=== PATIENT | female | born 1975 | race Caucasian/White ===

== ENCOUNTER 2019-06-14 15:26 | Outpatient (CLI) | payer BC, SELFPAY ==
--- NOTE | ~2019-06-14 | MM_ITS ---
EXAMINATION: MM screening jonatan BI w ruddy HISTORY: Screening mammogram TECHNIQUE: Craniocaudal and mediolateral oblique 3-D tomosynthesis images were obtained and synthetic 2-D images were generated. CAD analysis was submitted and interpreted. COMPARISON: None, baseline BREAST PARENCHYMAL COMPOSITION: The breasts are almost entirely fatty. FINDINGS: RIGHT BREAST: There is a possible low-density mass in the middle third of the outer breast approximat [place] 5 cm from the nipple. LEFT BREAST: There is no evidence of suspicious mass, calcification, or architectural distortion to s uggest malignancy. IMPRESSION: 1. Possible right breast mass. 2. Additional mammographic views and possible breast ultrasound are recommended to evaluate for malig kim and establish a baseline given that this is the first mammographic examination. BI-RADS Category 0: Incomplete: Needs additional imaging evaluation. Reviewed, dictated and finalized at location A. IRONER IMPRESSION: 1. Possible right breast mass. 2. Additional mammographic views and possible breast ultrasound are recommended to evaluate for malignancy and establish a baseline given that this is the fir st mammographic examination. BI-RADS Category 0: Incomplete: Needs additional imaging evaluation.
== END 2019-06-14 15:27 | disposition home or self-care (01) ==
LOC: ANHIMG 15:36
DX: Z12.31 Encounter for screening mammogram for malignant neoplasm of breast (principal); R92.8 Other abnormal and inconclusive findings on diagnostic imaging of breast
CPT/HCPCS: 77063; 77067

== ENCOUNTER 2020-11-13 15:00 | Outpatient (RCR) | payer BC, SELFPAY ==
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
--- NOTE | 2020-11-06 15:56 | PCPTNOTE ---
Patient reports she will not be able to make it to therapy this date because something has come up.
--- NOTE | 2020-11-11 15:54 | PCPTNOTE ---
pt did not show for today's appt; called and left voice message with reminder for next appt;
--- NOTE | 2020-11-13 15:39 | PCPTNOTE ---
pt did not show for today's reeval appt;
--- NOTE | 2020-11-28 14:47 | PCPTNOTE ---
PHYSICAL THERAPY DISCHARGE 11-28-20 Attending Provider: Nimisha Montemayor MD Patient:Linda Griffiths Date of :1975 Linda has received 2 PT sessions, on October 21 and November 03, for the diagnosis of vestibular rehab. She had 1 cancel and 2 no show appointments. Therefore, she will be discharged at this time. The goals were not addressed. Thank you for referring to [facility]. Please review, sign, date and return this discharge summary MALLIKA. I have been updated about the patient's current status and I agree with discharge from the above service at this time. Referring Physician Date
== END 2020-12-03 15:27 | disposition home or self-care (01) ==
LOC: ANHPT 15:00
PROVIDERS: PCP Family Medicine; Visit Provider Family Medicine
DX: M54.15 Radiculopathy, thoracolumbar region (principal)
CPT/HCPCS: 97110; 97140; 97161

== ENCOUNTER 2021-09-04 14:50 | Outpatient (CLI) | payer BC, SELFPAY ==
--- NOTE | ~2021-09-04 | CT_ITS ---
EXAMINATION: CT sinus wo con DATE: 09/04/2021 15:29 INDICATION: Disorder of nose and paranasal sinuses for years TECHNIQUE: Computed tomography (CT) of the paranasal sinuses was performed without contrast. Iterativ e reconstruction technique was employed. Exam dose: 303.98 mGy-cm total exam DLP. COMPARISON: None FINDINGS: There is rightward deviation of the nasal septum. The nasal turbinates are prominent but re latively symmetric in size. The ostiomeatal units are patent bilaterally. No mucoperiosteal thickening, soft tissue mass density, cyst or fluid level of the paranasal sinuses. The mastoid air cells are normally developed and aerated. Incidentally noted are bilateral fractures of the upper medial and inferior stewart of the right orbit IMPRESSION: Likely old blowout fractures of the upper medial and inferior stewart of the right orbit No displaced nasal fractures with leftward deviation of the nose Patent paranasal sinuses, ostiomeatal units and mastoid air cells Reviewed, dictated and finalized at Location A. Reviewed, dictated and finalized at location B. IMPRESSION: Likely old blowout fractures of the upper medial and inferior wall s of the right orbit No displaced nasal fractures with leftward deviation of the nose Patent paranasal sinuses, ostiomeatal units and mastoid air cells
== END 2021-09-04 14:51 | disposition home or self-care (01) ==
PROVIDERS: PCP Family Medicine; Visit Provider Otolaryngology
DX: J34.89 Other specified disorders of nose and nasal sinuses (principal); R09.81 Nasal congestion; J34.3 Hypertrophy of nasal turbinates; J34.2 Deviated nasal septum; J32.9 Chronic sinusitis, unspecified; R09.82 Postnasal drip
CPT/HCPCS: 70486

== ENCOUNTER 2022-01-22 13:38 | Emergency (ER) | payer BC, SELFPAY ==
[2022-01-22 13:41] VITALS: BP 142/80; PULSE 95; RESP 20; TEMP 36.3; O2SAT 97
--- NOTE | 2022-01-22 14:49 | ED.EAR ---
HPI - Ear Problem General Chief complaint: Ear Stated complaint: sinus infection Time Seen by Provider: 01/22/22 14:24 Source: patient Mode of arrival: ambulatory Limitations: no limitations History of Present Illness HPI Narrative: This is a 46-year-old female that presents to the emergency department for right-sided otalgia noted over the last couple of days. Associated with congestion, sinus pain, and a cough. Denies fevers. Related Data Home Medications Medication Instructions Recorded Confirmed loratadine 10 mg tablet (Claritin) 10 mg PO DAILY 08/05/21 08/26/21 montelukast 10 mg tablet 10 mg PO DAILY 08/05/21 08/26/21 (Singulair) Allergies Allergy/AdvReac Type Severity Reaction Status Date / Time ibuprofen Allergy Severe Anaphylactic Verified 08/26/21 10:08 Shock Penicillins Allergy Severe Anaphylactic Verified 08/26/21 10:08 Shock acetaminophen [From [place]] Allergy Unknown tongue Verified 08/26/21 10:08 swells hydrocodone [From [place]] Allergy Unknown tongue Verified 08/26/21 10:08 swells Review of Systems Review of Systems: CONSTITUTIONAL: Denies fever ENT: Reports congestion, and otalgia. RESPIRATORY: Reports cough. Denies dyspnea. All systems reviewed & are unremarkable except as noted in HPI and below PMFSH Past Medical History Medical History (Updated 01/22/22 @ 14:53 by Edyta Godoy PA-C) Influenza Seasonal allergies Surgical History Surgical History H/O myringotomy H/O tubal ligation Social History Social History Smoking status: Current every day smoker Tobacco type: cigarettes Alcohol intake: current Substance use: unknown Exam Narrative: GENERAL: Well-appearing, well-nourished, and in no acute distress. HEAD: Normocephalic, atraumatic. EYES: EOMI. ENT: Nares clear, no rhinorrhea or epistaxis. Mucous membranes moist. Oropharynx without tonsillar hypertrophy exudate or other lesions. Bilateral TMs pearly barth non-bulging NECK: Supple. No adenopathy or masses. CHEST: No respiratory distress. Mild, scattered wheezes. No rales or rhonchi HEART: Regular rate and rhythm. No murmur heard. Normal peripheral pulses. EXTREMITIES: Normal range of motion. No edema. SKIN: Warm, dry, no rash. NEURO: No focal deficits. Alert and oriented x3. PSYCH: Normal mood and affect Course Vital Signs Vital signs: Vital Signs Temperature 97.4 F L 01/22/22 13:41 Pulse Rate 95 01/22/22 13:41 Respiratory Rate 20 01/22/22 13:41 Blood Pressure 142/80 H 01/22/22 13:41 Pulse Oximetry 97 01/22/22 13:41 Temperature 97.4 F L 01/22/22 13:41 Pulse Rate 95 01/22/22 13:41 Respiratory Rate 20 01/22/22 13:41 Blood Pressure 142/80 H 01/22/22 13:41 Pulse Oximetry 97 01/22/22 13:41 Medical Decision Making MDM Narrative Medical decision making narrative: Patient presents to the emergency department for right-sided otalgia noted over the last couple of days. Associated with some sinus pain and congestion. She is afebrile and nontoxic-appearing. Her vitals are stable. Oxygen saturation is normal on room air. She has some mild scattered wheezes, otherwise her lungs are clear. She does report she has an albuterol inhaler at home. There is no evidence for otitis media at this time. We will send patient an antibiotic and she is instructed to started if she develops fevers or worsening pain. She was also encouraged to follow-up with her ENT doctor. She was given warnings to return to the ER Vital Signs Vital Signs: Vital Signs Temperature 97.4 F L 01/22/22 13:41 Pulse Rate 95 01/22/22 13:41 Respiratory Rate 01/22/22 13:41 Blood Pressure 142/80 H 01/22/22 13:41 Pulse Oximetry 97 01/22/22 13:41 Temperature 97.4 F L 01/22/22 13:41 Pulse Rate 95 01/22/22 13:41 Respiratory Rate 01/22/22 13:41 Bloo
== END 2022-01-22 15:00 | disposition home or self-care (01) ==
PROVIDERS: Emergency Provider Emergency Medicine; PCP Physician Assistant
DX: J01.01 Acute recurrent maxillary sinusitis (principal); F17.210 Nicotine dependence, cigarettes, uncomplicated
CPT/HCPCS: 99283

== ENCOUNTER 2023-06-11 13:37 | Outpatient (CLI) | payer MEDICAID, SELFPAY ==
--- NOTE | ~2023-06-11 | XR_ITS ---
EXAM: XR hip RT min 2V DATE: 06/11/2023 14:12 HISTORY: CERVICALGIA,LOW BACKK PAIN,PAIN IN RIGHT HIP . COMPARISON: None available. FINDINGS: Normal mineralization. No fracture or dislocation. No lytic or blastic lesion. Mild joint space narrowing, subchondral cysts, and subchondral sclerosis in the right hip joint. Mild degenerati ve change also noted in the right SI joint and pubic symphysis. IMPRESSION: Mild right hip osteoarthritis. Reviewed, dictated and finalized at location K. BOAT OPERATOR
--- NOTE | ~2023-06-11 | XR_ITS ---
EXAM: XR_CERV2-3V_CR DATE: 06/11/2023 14:12 HISTORY: NECK PAIN . COMPARISON: None available. FINDINGS: Craniocervical association and atlantoaxial joint are aligned. Mild degenerative change at the atlantodental interval. Reversed lordosis centered at C5-6. 3 mm retrolisthesis at C5-6. Trace a nterolisthesis at C4-5. Disc space narrowing and marginal osteophytosis, mild at C6-7 and moderate at C5-6. Mild multilevel facet sclerosis and hypertrophy. Normal prevertebral soft tissues. Clear lung apices. IMPRESSION: Multilevel degenerative listheses. Multilevel degenerative disc disease, moderate at C5-6 . Multilevel mild facet arthropathy. Reviewed, dictated and finalized at location K. ER COACH IMPRESSION: Multilevel degenerative listheses. Multilevel degenerative disc dis ease, moderate at C5-6. Multilevel mild facet arthropathy.
--- NOTE | ~2023-06-11 | XR_ITS ---
EXAM: XR lumbar spine 2-3V DATE: 06/11/2023 14:12 HISTORY: CERVICALGIA,LOW BACKK PAIN,PAIN IN RIGHT HIP . COMPARISON: None available. FINDINGS: 5 nonrib-bearing lumbar-type vertebral bodies. Pedicles intact. Lumbar straightening. Athe rosclerotic aortic ossification without aneurysm. Cholecystectomy clips. Mild disc space narrowing at L4-5. Severe disc space narrowing at L5-S1. Mild lower lumbar facet hypertrophy and sclerosis. No fr acture or dislocation. IMPRESSION: Severe degenerative disc disease at L5-S1. Reviewed, dictated and finalized at location K. ER MACHINE
== END 2023-06-11 13:38 | disposition home or self-care (01) ==
PROVIDERS: PCP Physician Assistant; Visit Provider Physician Assistant
DX: M16.11 Unilateral primary osteoarthritis, right hip (principal); M51.37 Other intervertebral disc degeneration, lumbosacral region; M50.322 Other cervical disc degeneration at C5-C6 level
CPT/HCPCS: 72040; 72100; 73502

== ENCOUNTER 2023-07-07 14:37 | Outpatient (CLI) | payer MEDICAID, SELFPAY ==
--- NOTE | ~2023-07-07 | MM_ITS ---
EXAMINATION: MM screening jonatan BI w ruddy HISTORY: Screening mammogram TECHNIQUE: Craniocaudal and mediolateral oblique 3-D tomosynthesis images were obtained and synthetic 2-D images were generated. CAD analysis was submitted and interpreted. COMPARISON: June 14, 2019 bilateral screening mammogram BREAST PARENCHYMAL COMPOSITION: The breasts are almost entirely fatty. FINDINGS: 2 approximately 5 mm masses are noted in the anterior central right breast. Diagnostic righ t mammogram and right breast ultrasound examination are recommended. No suspicious mass, architectural distortion, malignant calcification, skin thickening or retraction or significant new or developing density of either breast is noted otherwise. IMPRESSION: 1. 2 anterior central small right breast masses 2. Diagnostic right mammogram and right breast ultrasound examination are recommended. BI-RADS Category 0: Incomplete: Needs additional imaging evaluation. Reviewed, dictated and finalized at location A. IMPRESSION: 1. 2 anterior central small right breast masses 2. Diagnostic right mammogram and right breast ultrasound examination are recom mended. BI-RADS Category 0: Incomplete: Needs additional imaging evaluation.
== END 2023-07-07 14:38 | disposition home or self-care (01) ==
PROVIDERS: PCP Physician Assistant; Visit Provider Physician Assistant
DX: Z12.31 Encounter for screening mammogram for malignant neoplasm of breast (principal); R92.8 Other abnormal and inconclusive findings on diagnostic imaging of breast
CPT/HCPCS: 73030; 77063; 77067

== ENCOUNTER 2023-07-07 15:34 | Outpatient (CLI) | payer MEDICAID, SELFPAY ==
--- NOTE | ~2023-07-07 | XR_ITS ---
XR shoulder LT min 2V 07/07/2023 15:56 INDICATION: Left shoulder pain PROCEDURE: 2 views left shoulder COMPARISON: No prior studies for comparison. FINDINGS: Fracture, dislocation or subluxation is not identified. The soft tissues appear within norm al limits. No foreign bodies are identified. There is calcified granuloma left upper thorax. IMPRESSION: 1: NO ACUTE BONE OR JOINT ABNORMALITY IDENTIFIED. Reviewed, dictated and finalized at location A.
== END 2023-07-07 15:35 | disposition home or self-care (01) ==
PROVIDERS: PCP Physician Assistant; Visit Provider Physician Assistant
DX: M25.512 Pain in left shoulder (principal)
CPT/HCPCS: 73030

== ENCOUNTER 2023-07-10 21:56 | Emergency (ER) | payer MEDICAID, SELFPAY ==
[2023-07-10 21:57] VITALS: BP 143/89; PULSE 99; RESP 20; TEMP 36.7; O2SAT 100
--- NOTE | 2023-07-11 00:37 | ED.SKABFB ---
HPI - Skin/Abscess/Foreign Bdy General Chief complaint: Skin/Abscess/Foreign Body Stated complaint: itchy chest, bug bite? Time Seen by Provider: 07/10/23 23:07 Source: patient Mode of arrival: ambulatory Limitations: no limitations History of Present Illness HPI narrative: Patient is a 48-year-old female who presents the ED with report of her rash. Patient reports she has had intermittent episodes of rash in December of last year. First noticed 1 small blister-like lesion on her right upper arm in December. Had several blister-like lesions on her arm in April of this year which have since crusted and scabbed over. She states the rash episodes and blisters have been extremely itchy. She then noticed redness and itching to her chest yesterday with areas of firmness/hive-like lesions. She states the itchiness has continued to worsen since then, but she has not developed blisters yet on her chest. She has not seen her doctor for this as she has been having insurance issues. She has tried using topical Benadryl and a topical steroid cream without much improvement. Denies difficulty breathing or swallowing, swelling of lips/tongue/throat, nausea, vomiting, fevers. Denies any new medications, soaps, laundry detergent, lotion, outdoor exposures, family member with similar symptoms. Related Data Home Medications Medication Instructions Recorded Confirmed loratadine 10 mg tablet (Claritin) 10 mg PO DAILY 08/05/21 08/26/21 montelukast 10 mg tablet 10 mg PO DAILY 08/05/21 08/26/21 (Singulair) Allergies Allergy/AdvReac Type Severity Reaction Status Date / Time ibuprofen Allergy Severe Anaphylactic Verified 07/10/23 22:51 Shock Penicillins Allergy Severe Anaphylactic Verified 07/10/23 22:51 Shock acetaminophen [From [place]] Allergy Unknown tongue Verified 07/10/23 22:51 swells hydrocodone [From [place]] Allergy Unknown tongue Verified 07/10/23 22:51 swells Review of Systems Review of Systems: CONSTITUTIONAL: Denies fever, chills, or sweats. ENT: Denies swelling, rhinorrhea, congestion, sore throat. CARDIOVASCULAR: Denies chest pain. RESPIRATORY: Denies cough or dyspnea. GASTROINTESTINAL: Denies nausea, vomiting. SKIN: See HPI NEUROLOGIC: Denies headache, dizziness, numbness, or weakness. All systems reviewed & are unremarkable except as noted in HPI and below PMFSH Past Medical History Medical History Influenza Seasonal allergies Surgical History Surgical History H/O myringotomy H/O tubal ligation Social History Social History Smoking status: Current every day smoker Tobacco type: cigarettes Alcohol intake: current Substance use: unknown Exam Narrative: GENERAL: Well appearing, morbidly obese with BMI of 40.2, non-toxic, in no acute distress. HEAD: Normocephalic, atraumatic. ENT: No stridor or distress. No evidence of angioedema. MMs moist. No erythema or swelling of face. RESPIRATORY: Airway patent, respirations nonlabored. CARDIOVASCULAR: Regular rate and rhythm MUSCULOSKELETAL: Moves all extremities. No gross deformities. SKIN: Warm, dry, normal color. Diffuse area erythema to anterior chest wall, a few small areas of induration/urticaria on chest wall within area of erythema. No vesicular formation on chest wall. No rash or vesicular formation on upper extremities. NEURO: A&O X3. Speech clear. PSYCHIATRIC: Appropriate mood and affect. Normal interaction. Course Vital Signs Vital signs: Vital Signs Temperature 98.1 F 07/10/23 21:57 Pulse Rate 99 07/10/23 21:57 Respiratory Rate 20 07/10/23 21:57 Blood Pressure 143/89 H 07/10/23 21:57 Pulse Oximetry 100 07/10/23 21:57 Oxygen Delivery Room Air 07/10/23 21:57 Temperature 98.6 F 07/11/23 02:25 Pulse Rate
[2023-07-11] MEDS: FAMOTIDINE 20 MG TABLET PO (00:43)
[2023-07-11] MEDS: methylPREDNISolone SOD SUCC 125 MG VIAL IM (00:43)
[2023-07-11] MEDS: diphenhydrAMINE HCl CAP 25 MG CAPSULE PO (00:43)
[2023-07-11 02:25] VITALS: BP 138/86; PULSE 74; RESP 16; TEMP 37; O2SAT 99
== END 2023-07-11 02:27 | disposition home or self-care (01) ==
PROVIDERS: Emergency Provider Physician Assistant; PCP Physician Assistant
DX: R23.8 Other skin changes (principal); F17.210 Nicotine dependence, cigarettes, uncomplicated
CPT/HCPCS: 96372; 99283; A9270; J2930

== ENCOUNTER 2023-07-12 12:33 | Emergency (ER) | payer MEDICAID, SELFPAY ==
[2023-07-12 13:02] VITALS: BP 135/86; PULSE 83; RESP 18; TEMP 36.4; O2SAT 97
--- NOTE | 2023-07-12 14:24 | ED.ALLEREA ---
HPI - Allergic Reaction General Chief complaint: Allergic Reaction Stated complaint: allergic reaction Time Seen by Provider: 07/12/23 13:17 History of Present Illness HPI narrative: 48-year-old female presenting to the emergency department for evaluation of an allergic reaction. Patient was seen in emergency department a few days ago and was started on methylprednisone and patient feels that she had a worsening reaction to this medication. Related Data Home Medications Medication Instructions Recorded Confirmed loratadine 10 mg tablet (Claritin) 10 mg PO DAILY 08/05/21 08/26/21 montelukast 10 mg tablet 10 mg PO DAILY 08/05/21 08/26/21 (Singulair) Allergies Allergy/AdvReac Type Severity Reaction Status Date / Time ibuprofen Allergy Severe Anaphylactic Verified 07/12/23 15:07 Shock Penicillins Allergy Severe Anaphylactic Verified 07/12/23 15:07 Shock acetaminophen [From [place]] Allergy Unknown tongue Verified 07/12/23 15:07 swells hydrocodone [From [place]] Allergy Unknown tongue Verified 07/12/23 15:07 swells methylprednisolone Allergy Hives Verified 07/12/23 15:07 Review of Systems Review of Systems: All systems reviewed & are unremarkable except as noted in HPI and below PMFSH Past Medical History Medical History (Updated 07/13/23 @ 00:02 by Raimundo Major) Influenza Seasonal allergies Surgical History Surgical History H/O myringotomy H/O tubal ligation Social History Social History Smoking status: Current every day smoker Tobacco type: cigarettes Alcohol intake: current Substance use: unknown Exam Narrative: APPEARANCE: Well appearing, no pain, no distress, well-nourished. HEAD: normocephalic, atraumatic. EYES: PERRLA/EOMI, conjunctivae clear. NOSE: Normal no drainage THROAT: Pharynx clear, no exudate. NECK: Supple. No adenopathy, no masses. RESPIRATORY: Airway patent, respirations nonlabored. Clear to auscultation bilaterally, no rales, rhonchi, wheezing. CARDIOVASCULAR: Regular rate and rhythm without murmurs rubs or gallops. ABDOMINAL: Soft, nontender, nondistended, normal bowel sounds MUSCULOSKELETAL: Moves all extremities. Strength/ROM intact, No edema, No calf tenderness. NEURO: Alert. Cranial nerves II through XII intact. Good gait. Good coordination SKIN: Urticarial rash to arms and chest Course Vital Signs Vital signs: Vital Signs Temperature 97.5 F L 07/12/23 13:02 Pulse Rate 83 07/12/23 13:02 Respiratory Rate 18 07/12/23 13:02 Blood Pressure 135/86 07/12/23 13:02 Pulse Oximetry 97 07/12/23 13:02 Oxygen Delivery Room Air 07/12/23 13:02 Temperature 97.5 F L 07/12/23 13:02 Pulse Rate 83 07/12/23 13:02 Respiratory Rate 18 07/12/23 13:02 Blood Pressure 135/86 07/12/23 13:02 Pulse Oximetry 97 07/12/23 13:02 Oxygen Delivery Room Air 07/12/23 15:04 MDM - Allergic Reaction MDM Narrative Medical decision making narrative: 48-year-old female presented emergency department for evaluation for persistent allergic reaction. Patient was switched from methylprednisone to prednisone. Patient was encouraged of close follow-up with her primary care physician for further evaluation. Patient was also encouraged close follow-up with dermatology. Discharge Plan Discharge Clinical Impression: Allergic reaction Patient Disposition: Home, Self-Care Condition: Stable Instructions: Antibiotic Form, Allergies (ED) Additional Instructions: Stop taking the Medrol Dosepak. Start taking the 5 day course of prednisone. Benadryl as needed. Have close follow-up with your primary care physician. Prescriptions: New prednisone 50 mg tablet 50 mg PO DAILY Qty: 5 0RF No Action montelukast [Singulair] 10 mg tablet 10 mg PO DAILY loratadine [Claritin] 10 mg tablet 10
[2023-07-12] MEDS: predniSONE 40 MG, predniSONE 10 MG 50 MG PO (15:04)
[2023-07-12] MEDS: diphenhydrAMINE HCl CAP 25 MG CAPSULE PO (15:07)
== END 2023-07-12 15:10 | disposition home or self-care (01) ==
PROVIDERS: Emergency Provider Emergency Medicine; PCP Physician Assistant
DX: L50.0 Allergic urticaria (principal); T38.0X5A Adverse effect of glucocorticoids and synthetic analogues, initial encounter; F17.210 Nicotine dependence, cigarettes, uncomplicated
CPT/HCPCS: 99283; A9270; J7512

== ENCOUNTER 2023-09-06 13:52 | Outpatient (CLI) | payer OTHER, SELFPAY ==
--- NOTE | ~2023-09-06 | MMUS_ITS ---
EXAMINATION: MM diagnostic jonatan RT w ruddy, US breast RT limited HISTORY: Two Anterior central small right breast masses reported on 07/07/2023 screening mammogram TECHNIQUE: Additional 3-D tomosynthesis images of the right breast were performed and synthetic 2-D i mages were generated. CAD analysis was submitted and interpreted. High resolution limited right breas t ultrasound was performed. COMPARISON: 07/07/2023 bilateral screening mammogram FINDINGS: MAMMOGRAPHIC FINDINGS: There is an approximately 2.4 x 6 mm circumscribed opacity and an approximately 3 x 4.4 mm circumscri bed opacity in the anterior central right breast. The relatively low density in the circumscribed mar gins suggests likely benign process. There is benign-appearing calcification in the 2.4 x 6 mm opacit y. ULTRASOUND: In the subareolar area of the right breast there is an oval circumscribed 2.6 x 5.3 mm hypoechoic vania id lesion without internal vascularity or posterior shadowing. No other significant sonographic findi ng is noted. IMPRESSION: 1. Benign findings 2. Routine annual mammographic screening is recommended BI-RADS Category 2: Benign finding(s). Reviewed, dictated and finalized at location A. IMPRESSION: 1. Benign findings 2. Routine annual mammographic screening is recommended BI-RADS Category 2: Benign finding(s).
== END 2023-09-06 13:53 | disposition home or self-care (01) ==
PROVIDERS: PCP Physician Assistant; Visit Provider Physician Assistant
DX: R92.8 Other abnormal and inconclusive findings on diagnostic imaging of breast (principal)
CPT/HCPCS: 76642; 77061; 77065; G0279